=== PATIENT | male | born 1995 | race African-American/Black ===

== ENCOUNTER 2017-09-26 13:45 | Emergency (ER) | payer OTHER ==
--- NOTE | 2017-09-26 14:15 | PDOC ---
Rapid Medical Evaluation Time Seen by Provider: 09/26/17 14:11 Medical Evaluation: Allergies Allergy/AdvReac Type Severity Reaction Status Date / Time No Known Allergies Allergy Verified 09/26/17 14:11 09/26/17 14:12 The patient presents with a chief complaint of: chest pain since saturday and mid back pain since yesterday. Pt. works for [employer], no PMH I have performed a brief in-person evaluation of this patient; Pertinent physical exam findings: ambulatory, in no respiratory distress. TTP across the chest and R mid back. I have ordered the following: EKG The patient will proceed to the ED for further evaluation.
[2017-09-26 14:16] VITALS: BP 142/82; PULSE 68; TEMP 97.9; BMI 44.6
--- NOTE | 2017-09-26 14:35 | PDOC ---
History of Present Illness - General Chief Complaint: Chest Pain Stated Complaint: CHEST PAIN Time Seen by Provider: 09/26/17 14:11 History Source: Patient Exam Limitations: No Limitations - History of Present Illness Initial Comments: CHIEF COMPLAINT: 21 y/o afebrile male with no significant PMH c/o chest pain x 6 days. HISTORY OF PRESENT ILLNESS: The patient admits he works for [employer] and does a lot of heavy lifting. He states the pain is in his anterior chest and upper back and is worse with deep inspiration and palpation. He denies f/c, n/v /d, SOB, cough, hemoptysis and all other symptoms. He has taken tylenol for the pain with little relief. Vital signs on arrival are within normal limits. REVIEW OF SYSTEMS: GENERAL/CONSTITUTIONAL: No fever/chills. No weakness. No weight change. HEAD, EYES, EARS, NOSE AND THROAT: No change in vision. No ear pain or discharge. No sore throat. CARDIOVASCULAR: +chest pain. No shortness of breath. RESPIRATORY: No cough, wheezing, or hemoptysis. GASTROINTESTINAL: No abd pain, nausea, vomiting, diarrhea. GENITOURINARY: No dysuria, frequency, or change in urination. MUSCULOSKELETAL: +upper back pain. No neck or back pain. SKIN: No rash or easy bruising. NEUROLOGIC: No headache, vertigo, loss of consciousness, or loss of sensation. PHYSICAL EXAM: GENERAL: The patient is awake, alert, and fully oriented, in no acute distress. He is very well appearing, ambulatory, in NAD or obvious discomfort. HEAD: Normal with no signs of trauma. ENT: Pupils equal, round and reactive to light, extraocular movements intact, sclera anicteric, conjunctiva clear. Neck supple. LUNGS: Clear to auscultation bilaterally. Normal excursion. No respiratory distress or use of accessory muscles. CV: RRR, S1/S2, no MRG. Cap refill < 2 sec. CHEST WALL: Reproducible pain with palpation of anterior chest wall b/l, worse close to sternum. ABDOMEN: Soft, non-distended, non-tender even to deep palpation, no hepatomegaly or splenomegaly, no masses. BACK: Reproducible pain with palpation of thoracic back b/l. EXTREMITIES: Normal range of motion, no edema. NEUROLOGICAL: Normal speech, normal gait. CN II-XII grossly intact. SKIN: Warm, dry, normal turgor, no rashes or lesions noted. Past History - Past Medical History Allergies/Adverse Reactions: Allergies Allergy/AdvReac Type Severity Reaction Status Date / Time No Known Allergies Allergy Verified 09/26/17 14:11 Home Medications: Ambulatory Orders No Home Medications 0 dose .ROUTE UTDICT 03/17/12 Anemia: No Asthma: No Cancer: No Cardiac Disorders: No COPD: No Other medical history: DENIES. - Surgical History Abdominal Surgery: No Appendectomy: No Cardiac Surgery: No - Immunization History Immunization Up to Date: Yes - Suicide/Smoking/Psychosocial Hx Smoking Status: No Smoking History: Never smoked Number of Cigarettes Smoked Daily: 0 *Physical Exam - Vital Signs Last Vital Signs Temp Pulse Resp BP Pulse Ox 97.9 F 68 19 142/82 100 09/26/17 14:12 09/26/17 14:12 09/26/17 14:12 09/26/17 14:12 09/26/17 14:12 Heart Score/ECG Review - ECG Intrepretation Comment:: Twelve-lead EKG was performed and reviewed by Dr. Hahn. There is normal sinus rhythm with sinus arrhythmia. The axis is normal. The intervals are normal. There are no ST or T wave abnormalities. Impression: Normal twelve-lead EKG Medical Decision Making - Medical Decision Making A/P: 21 y/o male with musculoskeletal chest and back pain. Plan is as follows: 1. EKG 2. IM toradol EKG normal. Will discharge the patient to home with instructions to take motrin for pain every 6 hours and avoid lifting until symptoms improve. Instructed him to return to the ER with any worsening or concerning symptoms. The patient verbalizes understanding of all instructions, has no further questions and is awaiting discharge. *DC/Admit/Observation/Transfer Diagnosis at time of Disposition: Musculoskeletal chest pain - Discharge Dispostion Disposition: HOME Condition at time of disposition: Good - Referrals Referrals: Arben Varner MD [Primary Care Provider] - Samm Prasad MD [Staff Physician] - - Patient Instructions Printed Discharge Instructions: DI for Atypical Chest Pain, DI for Musculoskeletal Pain Additional Instructions: Discharge Instructions: -Your EKG was normal -You have muscular chest pain -Please take 600mg of over the counter Motrin every 6 hours with food to help with pain -No heavy lifting until symptoms improve -Follow up with Dr. Prasad if symptoms continue -Return to the ER immediately if symptoms worsen. - Post Discharge Activity Forms/Work/School Notes: Back to Work
[2017-09-26] MEDS ORDERED: KETOROLAC TROMETHAMINE 60 MG/2 ML VIAL IM ONE (14:43)
[2017-09-26] MEDS ORDERED: KETOROLAC TROMETHAMINE 60 MG/2 ML VIAL ONE (14:46)
--- NOTE | 2017-09-26 15:53 | EKG ---
Test Reason : Blood Pressure : / mmHG Vent. Rate : 064 BPM Atrial Rate : 064 BPM P-R Int : 152 ms QRS Dur : 104 ms QT Int : 414 ms P-R-T Axes : 040 055 049 degrees QTc Int : 427 ms NORMAL SINUS RHYTHM WITH SINUS ARRHYTHMIA NORMAL ECG WHEN COMPARED WITH ECG OF 02-APR-2012 18:07, PREVIOUS ECG IS PRESENT Confirmed by HERMAN BUENROSTRO MD ([id number]) on 09/26/2017 3:52:47 PM Referred By: Confirmed By:HERMAN BUENROSTRO MD
== END 2017-09-26 15:37 | disposition home or self-care (01) ==
LOC: JERFT 13:45
PROC: 3E0233Z Introduction of Anti-inflammatory into Muscle, Percutaneous Approach (ICD-10-PCS; principal; 2017-09-26)
DX: R07.89 Other chest pain (principal); X50.0XXA Overexertion from strenuous movement or load, initial encounter; Y93.89 Activity, other specified; Y92.59 Other trade areas as the place of occurrence of the external cause; Y99.0 Civilian activity done for income or pay
CPT/HCPCS: 93005; 93010; 99281-25